=== PATIENT | female | born 1970 | race African-American/Black ===

== ENCOUNTER 2016-08-24 12:05 | Emergency (ER) | payer BC ==
[2016-08-24] MEDS ORDERED: Ibuprofen 200 MG TAB ONE (12:30)
[2016-08-24] MEDS ORDERED: Ondansetron ODT 4 MG TAB ONE (12:30)
[2016-08-24] MEDS ORDERED: Benzonatate 100 MG CAP ONE (12:33)
[2016-08-24 13:12] LABS: Bilirubin Negative (Negative); Blood, Urine Trace (Negative); Glucose, Urine (Dipstick) Negative (Negative); Leukocyte Negative (Negative); Nitrite Negative (Negative); Protein, Urine (Dipstick) Negative (Neg-Trace); Specific Gravity, Urine 1.015 (1.005-1.030); Urobilinogen 0.2 mg/dL (0.2-1.0)
[2016-08-24 13:16] LABS: #Basophils 0.1 thou/uL (0.0-0.2); #Lymphocytes 1.5 thou/uL (1.20-3.40); #Monocytes 0.7 thou/uL (0.11-0.59); #Neutrophils 4.2 thou/uL (1.40-6.50); %Basophils 1.8 % (0.0-1.0); %Lymphocytes 23.2 % (21.0-51.0); %Monocytes 10.4 % (0.0-10.0); %Neutrophils 64.6 % (42.0-75.0); Hemoglobin 14.8 g/dL (12.0-16.0); Mean Corpuscular HGB CONC 32.6 g/dL (32.0-36.0); Mean Corpuscular Hemoglobin 29.3 pg (27.0-31.0); Mean Corpuscular Volume 89.8 fl (81.0-99.0); Mean Platelet Volume 8.6 fL (7.4-10.4); Platelet Count 191 thou/uL (130-400); RBC Distribution Width 12.7 % (11.5-14.5); Red Blood Cell (RBC) Count 5.05 mill/uL (4.20-5.40); White Blood Cell (WBC) Count 6.5 thou/uL (4.8-10.8)
--- NOTE | 2016-08-24 13:19 | RAD ---
EXAM: ONE VIEW CHEST: HISTORY: Cough. COMPARISON: 04/14/16. FINDINGS: Normal cardiac silhouette. Pulmonary vessels and hilum are normal. No mass. No consolidation. No pneumothorax or osseous abnormalities. IMPRESSION: No acute cardiopulmonary process. POS: [facility]
[2016-08-24 13:21] LABS: Bacteria/HPF Rare-Few HPF (None Seen); Clarity SL HAZY (Clear); RBC/HPF 0-3 HPF (0-3); Squamous Epithelial 0-3 HPF (0-3)
[2016-08-24 13:26] LABS: ALT (SGPT) 13 U/L (0-55); AST (SGOT) 17 U/L (5-34); Albumin 4.3 g/dL (3.5-5.0); Alkaline Phosphatase 87 U/L (40-150); Anion Gap 16 mmol/L (10-20); BUN (Urea Nitrogen) 7 mg/dL (7.0-18.7); Bilirubin, Total 0.4 mg/dL (0.2-1.2); Calc. Creatinine Clearance 0 mL/min (70-130); Calcium 9.2 mg/dL (7.8-10.44); Carbon Dioxide 22 mmol/L (22-29); Chloride 103 mmol/L (98-107); Estimated GFR-MDRD 62; Globulin 3.6 g/dL (2.4-3.5); Glucose 94 mg/dL (70-105); Protein, Total 7.9 g/dL (6.0-8.3); Sodium 137 mmol/L (136-145)
== END 2016-08-24 13:48 | disposition home or self-care (01) ==
LOC: NAV ERS 12:05
DX: B34.9 Viral infection, unspecified (principal); E03.9 Hypothyroidism, unspecified; I10 Essential (primary) hypertension; Z79.899 Other long term (current) drug therapy
CPT/HCPCS: 71010; 80053; 81003; 81015; 83605; 85025; 87081; 87430; Q0162

== ENCOUNTER 2017-05-18 08:53 | Emergency (ER) | payer BC ==
[2017-05-18] MEDS ORDERED: Ibuprofen 200 MG TAB ONE (09:00)
--- NOTE | 2017-05-18 12:01 | RAD ---
PA AND LATERAL CHEST: HISTORY: Chest pain. Flu symptoms. FINDINGS: The lungs are clear. No infiltrate identified. The heart and mediastinum are unremarkable. IMPRESSION: No evidence of focal infiltrate. POS: [facility]
== END 2017-05-18 10:02 | disposition home or self-care (01) ==
LOC: NAV ERS 08:53
DX: J11.1 Influenza due to unidentified influenza virus with other respiratory manifestations (principal); E03.9 Hypothyroidism, unspecified; I10 Essential (primary) hypertension; M10.9 Gout, unspecified; F17.210 Nicotine dependence, cigarettes, uncomplicated; Z79.899 Other long term (current) drug therapy
CPT/HCPCS: 71046; 93005

== ENCOUNTER 2017-08-16 12:13 | Emergency (ER) | payer BC ==
[2017-08-16] MEDS ORDERED: HYDROcodone/Acetaminophen 5/325 mg Tablet ONE (12:55)
--- NOTE | 2017-08-16 14:50 | RAD ---
RADIOGRAPH RIGHT FOOT 3 VIEWS: Date: 08/16/17 HISTORY: 47-year-old female with nontraumatic right foot pain. FINDINGS: There is a bunionectomy defect at the medial aspect of the first metatarsal head and neck, and there is chronic osseous thickening of the lateral side. There is no hallux valgus. Mild degenerative siddiqui es at the first MTP joint space. Diffuse soft tissue edema of the foot. No periosteal elevation, oste olytic lesion, osteoblastic lesion, or permeative lesion. Bone mineralization is normal. IMPRESSION: 1. Diffuse soft tissue edema. 2. No destructive osseous lesion. 3. Status post bunionectomy and osteoplasty of 1st metatarsal. POS: [facility]
== END 2017-08-16 14:05 | disposition home or self-care (01) ==
LOC: NAV ERS 12:13
DX: M10.9 Gout, unspecified (principal); E03.9 Hypothyroidism, unspecified; I10 Essential (primary) hypertension; F17.210 Nicotine dependence, cigarettes, uncomplicated; Z79.899 Other long term (current) drug therapy
CPT/HCPCS: 84550

== ENCOUNTER 2018-06-30 23:13 | Emergency (ER) | payer BC ==
[2018-06-30] MEDS ORDERED: Ketorolac Tromethamine 30 MG/ML VIAL ONE (23:36)
[2018-06-30 23:38] LABS: #Basophils 0.1 thou/uL (0.0-0.2); #Eosinphils 0.5 thou/uL (0.0-0.7); #Lymphocytes 4.3 thou/uL (1.20-3.40); #Monocytes 0.8 thou/uL (0.11-0.59); #Neutrophils 5.3 thou/uL (1.40-6.50); %Basophils 0.8 % (0.0-1.0); %Eosinophils 4.3 % (0.0-10.0); %Lymphocytes 39.2 % (21.0-51.0); %Monocytes 7.1 % (0.0-10.0); %Neutrophils 48.6 % (42.0-75.0); Hemoglobin 14.4 g/dL (12.0-16.0); Mean Corpuscular HGB CONC 32.7 g/dL (32.0-36.0); Mean Corpuscular Hemoglobin 28.6 pg (27.0-31.0); Mean Corpuscular Volume 87.4 fL (78.0-98.0); Mean Platelet Volume 8.8 fL (7.4-10.4); Platelet Count 248 thou/uL (130-400); RBC Distribution Width 12.8 % (11.5-14.5); Red Blood Cell (RBC) Count 5.06 mill/uL (4.20-5.40); White Blood Cell (WBC) Count 10.9 thou/uL (4.8-10.8)
--- NOTE | 2018-06-30 23:49 | RAD ---
CHEST ONE VIEW 06/30/18 INDICATION: History of chest pain. COMPARISON: Prior exam dated 08/24/16. FINDINGS: The lungs are clear. Heart size is normal. There are mild vascular calcifications involving the aorti c arch. No acute osseous abnormality is evident. IMPRESSION: No acute cardiopulmonary abnormality. POS: [facility]
[2018-06-30 23:59] LABS: Anion Gap 13 mmol/L (10-20); BUN (Urea Nitrogen) 14 mg/dL (7.0-18.7); CK (CPK) 398 U/L (29-168); Calc. Creatinine Clearance 0 mL/min (70-130); Calcium 10.3 mg/dL (7.8-10.44); Carbon Dioxide 25 mmol/L (22-29); Chloride 103 mmol/L (98-107); Estimated GFR-MDRD Greater than 90; Glucose 93 mg/dL (70-105); Lipase 16 U/L (8-78); Potassium 3.7 mmol/L (3.5-5.1); Sodium 137 mmol/L (136-145)
== END 2018-07-01 00:12 | disposition home or self-care (01) ==
LOC: NAV ERS 23:13
DX: R09.1 Pleurisy (principal); J34.0 Abscess, furuncle and carbuncle of nose; E03.9 Hypothyroidism, unspecified; I10 Essential (primary) hypertension; M10.9 Gout, unspecified; F17.210 Nicotine dependence, cigarettes, uncomplicated; Z79.899 Other long term (current) drug therapy; Z79.82 Long term (current) use of aspirin; Z79.891 Long term (current) use of opiate analgesic; Z79.51 Long term (current) use of inhaled steroids
CPT/HCPCS: 36415; 71045; 80048; 82550; 83690; 84484; 85025; 93005; 96374; J1885

== ENCOUNTER 2018-08-16 12:51 | Emergency (ER) | payer BC | END 2018-08-16 13:58 | disposition home or self-care (01) | LOC: NAV ERS 12:51 | DX: J02.9 Acute pharyngitis, unspecified (principal); I10 Essential (primary) hypertension; M10.9 Gout, unspecified; F17.210 Nicotine dependence, cigarettes, uncomplicated; E03.9 Hypothyroidism, unspecified; Z79.899 Other long term (current) drug therapy | CPT/HCPCS: 87081; 87430; 99283 ==

== ENCOUNTER 2018-09-24 09:46 | Emergency (ER) | payer BC ==
[2018-09-24] MEDS ORDERED: Pantoprazole 40 MG VIAL ONE (10:28)
[2018-09-24] MEDS ORDERED: Nitroglycerin 0.4 MG TAB (25 Tab Bottle) ONE (10:29)
[2018-09-24] MEDS ORDERED: Aspirin Chewable 81 MG TAB ONE (10:30)
[2018-09-24 10:38] LABS: #Basophils 0.1 thou/uL (0.0-0.2); #Lymphocytes 3.9 thou/uL (1.20-3.40); #Monocytes 1.1 thou/uL (0.11-0.59); #Neutrophils 14.5 thou/uL (1.40-6.50); %Basophils 0.3 % (0.0-1.0); %Eosinophils 0.2 % (0.0-10.0); %Lymphocytes 19.7 % (21.0-51.0); %Monocytes 5.7 % (0.0-10.0); %Neutrophils 74.1 % (42.0-75.0); Hemoglobin 14.6 g/dL (12.0-16.0); Mean Corpuscular HGB CONC 31.7 g/dL (32.0-36.0); Mean Corpuscular Volume 88.2 fL (78.0-98.0); Mean Platelet Volume 8.7 fL (7.4-10.4); Platelet Count 270 thou/uL (130-400); RBC Distribution Width 13.6 % (11.5-14.5); Red Blood Cell (RBC) Count 5.21 mill/uL (4.20-5.40); White Blood Cell (WBC) Count 19.5 thou/uL (4.8-10.8)
--- NOTE | 2018-09-24 10:41 | RAD ---
PA AND LATERAL VIEWS OF CHEST: HISTORY: Midsternal chest pain. FINDINGS: Comparison is made with the exam of 06/30/2018. The heart size is normal. The lungs are expanded without focal areas of consolidation, pneumothorace s, or pleural effusions. There are mild degenerative changes in the spine. IMPRESSION: No radiographic evidence of acute cardiopulmonary process. POS: [facility]
[2018-09-24 10:48] LABS: ALT (SGPT) 27 U/L (8-55); AST (SGOT) 21 U/L (5-34); Albumin 4.1 g/dL (3.5-5.0); Alkaline Phosphatase 150 U/L (40-150); Anion Gap 16 mmol/L (10-20); BUN (Urea Nitrogen) 12 mg/dL (7.0-18.7); Bilirubin, Total 0.2 mg/dL (0.2-1.2); Calc. Creatinine Clearance 0 mL/min (70-130); Carbon Dioxide 24 mmol/L (22-29); Chloride 103 mmol/L (98-107); Estimated GFR-MDRD 79; Globulin 3.2 g/dL (2.4-3.5); Glucose 161 mg/dL (70-105); Potassium 3.6 mmol/L (3.5-5.1); Protein, Total 7.3 g/dL (6.0-8.3); Sodium 139 mmol/L (136-145)
[2018-09-24] MEDS ORDERED: Fentanyl 100 MCG/2 ML VIAL ONE (11:19)
[2018-09-24 11:29] LABS: Bilirubin Negative (Negative); Blood, Urine Negative (Negative); Clarity Clear (Clear); Glucose, Urine (Dipstick) Negative (Negative); Leukocyte Negative (Negative); Nitrite Negative (Negative); Protein, Urine (Dipstick) Negative (Neg-Trace); Specific Gravity, Urine 1.015 (1.005-1.030); Urobilinogen 0.2 mg/dL (0.2-1.0); pH, Urine 5.5 (5.0-9.0)
[2018-09-24] MEDS ORDERED: Magnesium 5 GM/10 ML VIAL ONE (13:01)
[2018-09-24] MEDS ORDERED: Mag-Al Plus 1200 MG/1200 MG/120 MG/30 ML UDCUP ONE (13:01)
--- NOTE | 2018-09-24 13:18 | ULT ---
RIGHT UPPER QUADRANT ULTRASOUND: Date: 09/24/18 PROVIDED CLINICAL HISTORY: Chest pain. FINDINGS: The IVC and pancreas appear normal as visualized. Liver demonstrates no mass or intrahepatic biliary ductal dilatation. Common duct is not dilated. Gallbladder demonstrates no stones, wall thickening, o r pericholecystic fluid. Right kidney demonstrates no hydronephrosis or mass. IMPRESSION: No evidence for an acute abnormality. POS: [facility]
== END 2018-09-24 14:05 | disposition home or self-care (01) ==
LOC: NAV ERS 09:46
DX: K29.00 Acute gastritis without bleeding (principal); R07.81 Pleurodynia; E03.9 Hypothyroidism, unspecified; I10 Essential (primary) hypertension; M10.9 Gout, unspecified; F17.210 Nicotine dependence, cigarettes, uncomplicated; Z79.899 Other long term (current) drug therapy
CPT/HCPCS: 36415; 71046; 76705; 80053; 81003; 84484; 85025; 93005; 96374; 96375; C9113; J3010; J3475

== ENCOUNTER 2019-01-17 15:32 | Emergency (ER) | payer BC ==
[2019-01-17] MEDS ORDERED: methylPREDNISolone Sod Succ/PF 125 MG/2 ML VIAL ONE (15:54)
[2019-01-17] MEDS ORDERED: Ketorolac Tromethamine 60 MG/2 ML VIAL ONE (15:54)
== END 2019-01-17 16:18 | disposition home or self-care (01) ==
LOC: NAV ERS 15:32
DX: M54.41 Lumbago with sciatica, right side (principal); E03.9 Hypothyroidism, unspecified; I10 Essential (primary) hypertension; M10.9 Gout, unspecified; M19.90 Unspecified osteoarthritis, unspecified site; F17.210 Nicotine dependence, cigarettes, uncomplicated; Z79.899 Other long term (current) drug therapy; Z79.82 Long term (current) use of aspirin
CPT/HCPCS: 96372; 99283; J1885; J2930

== ENCOUNTER 2019-05-28 13:42 | Outpatient (CLI) | payer BC ==
--- NOTE | 2019-05-28 15:43 | RAD ---
THREE VIEWS LUMBAR SPINE: 05/28/19 INDICATION: History of diagnosis code 54.16, back pain. COMPARISON: Comparison from [facility] from 02/14/15 was reviewed. FINDINGS: The upright lateral projection of the lumbar spine demonstrates moderate disc degenerative disease at L3-4 through L5-S1. No abnormal translational motion is evident. IMPRESSION: 1. No abnormal translational motion. 2. Moderate disc degenerative disease of the lower lumbar spine. POS: [facility]
== END 2019-05-28 13:43 | disposition home or self-care (01) ==
LOC: NAV RAD 13:42
PROVIDERS: ATTEND Neurological Surgery
DX: M51.16 Intervertebral disc disorders with radiculopathy, lumbar region (principal)
CPT/HCPCS: 72100

== ENCOUNTER 2019-09-25 09:59 | Emergency (ER) | payer BC | END 2019-09-25 11:20 | disposition home or self-care (01) | LOC: NAV ERS 09:59 | DX: L76.34 Postprocedural seroma of skin and subcutaneous tissue following other procedure (principal); E03.9 Hypothyroidism, unspecified; I10 Essential (primary) hypertension; E78.5 Hyperlipidemia, unspecified; F32.9 Major depressive disorder, single episode, unspecified; F17.210 Nicotine dependence, cigarettes, uncomplicated; Z79.899 Other long term (current) drug therapy; Z79.1 Long term (current) use of non-steroidal anti-inflammatories (NSAID); Z79.82 Long term (current) use of aspirin; Z79.891 Long term (current) use of opiate analgesic | CPT/HCPCS: 99282 ==

== ENCOUNTER 2019-10-19 12:41 | Emergency (ER) | payer BC ==
[2019-10-19] MEDS ORDERED: Ondansetron ODT 4 MG TAB ONE (13:35)
[2019-10-19] MEDS ORDERED: Acetaminophen/Codeine 30-300mg Tablet ONE (13:35)
[2019-10-19 13:59] LABS: #Basophils 0.2 thou/uL (0.0-0.2); #Eosinphils 0.4 thou/uL (0.0-0.7); #Lymphocytes 4.9 thou/uL (1.20-3.40); #Monocytes 1.1 thou/uL (0.11-0.59); #Neutrophils 5.3 thou/uL (1.40-6.50); %Basophils 1.3 % (0.0-1.0); %Eosinophils 3.5 % (0.0-10.0); %Lymphocytes 41.3 % (21.0-51.0); %Monocytes 9.2 % (0.0-10.0); %Neutrophils 44.7 % (42.0-75.0); Hemoglobin 13.9 g/dL (12.0-16.0); Mean Corpuscular HGB CONC 30.4 g/dL (32.0-36.0); Mean Corpuscular Hemoglobin 28.5 pg (27.0-31.0); Mean Corpuscular Volume 93.7 fL (78.0-98.0); Mean Platelet Volume 9.9 fL (7.4-10.4); Platelet Count 283 thou/uL (130-400); RBC Distribution Width 15.7 % (11.5-14.5); Red Blood Cell (RBC) Count 4.88 mill/uL (4.20-5.40); White Blood Cell (WBC) Count 11.8 thou/uL (4.8-10.8)
[2019-10-19 14:07] LABS: Anion Gap 14 mmol/L (10-20); BUN (Urea Nitrogen) 10 mg/dL (7.0-18.7); Calc. Creatinine Clearance 0 mL/min (70-130); Calcium 9.6 mg/dL (7.8-10.44); Carbon Dioxide 27 mmol/L (22-29); Chloride 99 mmol/L (98-107); Estimated GFR-MDRD 68; Glucose 104 mg/dL (70-105); Potassium 3.9 mmol/L (3.5-5.1); Sodium 136 mmol/L (136-145)
--- NOTE | 2019-10-19 17:53 | CT ---
CT OF THE LUMBAR SPINE WITHOUT CONTRAST: 10/19/19 INDICATION: 49-year-old female with history of lumbar fusion five weeks ago with low back pain. COMPARISON: Lumbar spinal radiograph dated 05/28/19. FINDINGS: There is postprocedural change of a laminectomy at L5. There is partial ostectomy of the spinous proc ess at L4. There is vacuum disc phenomenon at L4-5. There is posterolateral spinal instrumentation at L5-S1 consistent with a posterior lumbar interbody fusion. There is morselized bone graft seen along the posterolateral aspect of the spinal fusion column. The pedicular screws and interconnecting rods are intact. There is no overt evidence to suggest loosening. There is some inflammatory reticulation of the subcutaneous fat overlying the operative site consistent with the patient's fairly recent po stoperative state. There are vascular calcifications involving the visualized abdominopelvic vasculat ure. There is mild degenerative change of both SI joints. At the L5-S1 level, there is a residual osteophyte complex and facet hypertrophy inducing mild to mod erate neural foraminal narrowing, left greater than right. At L4-5, there is a broad based disc osteophyte complex and facet hypertrophy inducing mild to modera te bilateral neural foraminal narrowing. At L3-4, there is a broad based bulge with facet hypertrophy inducing mild bilateral neural foraminal narrowing. At L2-3, there is no appreciable osseous central canal or neural foraminal narrowing. At L1-2, there is no appreciable central canal or neural foraminal narrowing. IMPRESSION: 1. Postoperative lumbar spine. 2. Moderate spondylosis of the lumbar spine with some residual neural foraminal narrowing as det anita above. POS: [facility]
== END 2019-10-19 15:33 | disposition short-term general hospital (02) ==
LOC: NAV ERS 12:41
DX: M51.36 Other intervertebral disc degeneration, lumbar region (principal); M54.5 Low back pain; G89.29 Other chronic pain; R79.1 Abnormal coagulation profile; M79.89 Other specified soft tissue disorders; F32.9 Major depressive disorder, single episode, unspecified; E78.5 Hyperlipidemia, unspecified; I10 Essential (primary) hypertension; F17.210 Nicotine dependence, cigarettes, uncomplicated; E03.9 Hypothyroidism, unspecified; Z79.1 Long term (current) use of non-steroidal anti-inflammatories (NSAID); Z79.899 Other long term (current) drug therapy
CPT/HCPCS: 72131; 80048; 85025; 85379; Q0162

== ENCOUNTER 2020-04-12 09:59 | Emergency (ER) | payer SELFPAY ==
[2020-04-12] MEDS ORDERED: Ketorolac Tromethamine 30 MG/ML VIAL ONE (10:46)
--- NOTE | 2020-04-12 11:01 | RAD ---
PORTABLE CHEST: Date: 04/12/2020 HISTORY: Cough. COMPARISON: 06/30/2018. FINDINGS: Lung garcía appear clear. No infiltrate or vascular congestion. Heart size normal. IMPRESSION: No acute lung abnormality identified. POS: [facility]
[2020-04-12 22:26] LABS: SARS-CoV-2 MS2 Positive; SARS-CoV-2 N Gene Negative; SARS-CoV-2 S Gene Negative; SARS-CoV-2 by NAA Not Detected (NotDetected); SARS-CoV-2 orf1ab Negative
== END 2020-04-12 12:00 | disposition home or self-care (01) ==
LOC: NAV ERS 09:59
DX: B34.9 Viral infection, unspecified (principal); Z20.828 Contact with and (suspected) exposure to other viral communicable diseases; J44.9 Chronic obstructive pulmonary disease, unspecified; E03.9 Hypothyroidism, unspecified; E78.5 Hyperlipidemia, unspecified; I10 Essential (primary) hypertension; F17.210 Nicotine dependence, cigarettes, uncomplicated; Z79.899 Other long term (current) drug therapy; Z79.1 Long term (current) use of non-steroidal anti-inflammatories (NSAID)
CPT/HCPCS: 71045; 87635; 87804; 96374; J1885; U0003

== ENCOUNTER 2020-06-09 11:28 | Emergency (ER) | payer OTHER ==
[2020-06-09] MEDS ORDERED: HYDROcodone/Acetaminophen 5/325 mg Tablet ONE (11:55)
[2020-06-09] MEDS ORDERED: Cyclobenzaprine 10 MG TAB ONE (11:55)
[2020-06-09] MEDS ORDERED: Ketorolac Tromethamine 60 MG/2 ML VIAL ONE (11:55)
== END 2020-06-09 12:42 | disposition home or self-care (01) ==
LOC: NAV ERS 11:28
DX: G89.29 Other chronic pain (principal); M54.16 Radiculopathy, lumbar region; J44.9 Chronic obstructive pulmonary disease, unspecified; E03.9 Hypothyroidism, unspecified; E78.5 Hyperlipidemia, unspecified; I10 Essential (primary) hypertension; F17.210 Nicotine dependence, cigarettes, uncomplicated; Z79.84 Long term (current) use of oral hypoglycemic drugs; Z79.899 Other long term (current) drug therapy
CPT/HCPCS: 96372; 99283; J1885

== ENCOUNTER 2020-06-25 13:04 | Emergency (ER) | payer BC, OTHER ==
--- NOTE | 2020-06-25 13:47 | RAD ---
EXAM: CHEST PA AND LATERAL: History: Pneumonia Comparison: 04-12-2020 FINDINGS: Heart size is within normal limits. The lungs are clear. No confluent pneumonia, overt edema, or pleu ral effusion. IMPRESSION: No significant acute intrathoracic disease. POS: [facility]
[2020-06-25] MEDS ORDERED: Acetaminophen 325 MG TAB ONE (13:59)
[2020-06-26 17:51] LABS: SARS-CoV-2 PCR by NAA Not Detected (NotDetected)
== END 2020-06-25 14:30 | disposition home or self-care (01) ==
LOC: NAV ERS 13:04
DX: J44.0 Chronic obstructive pulmonary disease with (acute) lower respiratory infection (principal); J20.9 Acute bronchitis, unspecified; Z20.822 Contact with and (suspected) exposure to COVID-19; M79.7 Fibromyalgia; E03.9 Hypothyroidism, unspecified; E78.5 Hyperlipidemia, unspecified; F17.210 Nicotine dependence, cigarettes, uncomplicated; Z79.51 Long term (current) use of inhaled steroids; Z79.899 Other long term (current) drug therapy
CPT/HCPCS: 71046; 87635; 93005; U0003; U0005

== ENCOUNTER 2020-09-07 11:07 | Emergency (ER) | payer BC ==
[~2020-09-07 11:07] MED LIST: Iopamidol 370 76% 100 ML VIAL ONE
[2020-09-07] MEDS ORDERED: Ondansetron PF 4 MG/2 ML Vial ONE (11:16)
[2020-09-07 12:45] LABS: Bilirubin Negative (Negative); Blood, Urine Negative (Negative); Clarity Clear (Clear); Glucose, Urine (Dipstick) Negative (Negative); Ketone, Urine Negative (Negative); Leukocyte Negative (Negative); Nitrite Negative (Negative); Protein, Urine (Dipstick) Negative (Neg-Trace); Urobilinogen 0.2 mg/dL (Less than 2); pH, Urine 5.5 (5.0-9.0)
[2020-09-07 13:03] LABS: ALT (SGPT) 30 U/L (8-55); AST (SGOT) 12 U/L (5-34); Albumin 3.5 g/dL (3.5-5.0); Alkaline Phosphatase 106 U/L (40-110); Anion Gap 14 mmol/L (10-20); BUN (Urea Nitrogen) 15 mg/dL (9.8-20.1); Bilirubin, Total 0.6 mg/dL (0.2-1.2); Calc. Creatinine Clearance 0 mL/min (70-130); Calcium 8.1 mg/dL (7.8-10.44); Carbon Dioxide 28 mmol/L (22-29); Chloride 100 mmol/L (98-107); Globulin 3.1 g/dL (2.4-3.5); Glucose 100 mg/dL (70-105); Lipase 20 U/L (8-78); Potassium 3.9 mmol/L (3.5-5.1); Protein, Total 6.6 g/dL (6.0-8.3); Sodium 138 mmol/L (136-145)
[2020-09-07 13:06] LABS: Hemoglobin 14.4 g/dL (12.0-16.0); Mean Corpuscular HGB CONC 28.3 g/dL (32.0-36.0); Mean Corpuscular Hemoglobin 28.7 pg (27.0-31.0); Mean Platelet Volume 8.8 fL (7.4-10.4); Platelet Count 257 thou/uL (130-400); RBC Distribution Width 15.7 % (11.5-14.5); White Blood Cell (WBC) Count 9.2 thou/uL (4.8-10.8)
[2020-09-07] MEDS ORDERED: Morphine 4 MG/ML VIAL ONE (13:21)
[2020-09-07 13:22] LABS: Lymphocytes 37 % (21-51); MDiff Complete? YES; Monocytes 1 % (0-10); Neutrophil 62 % (42-75); Platelet Morphology Comment Appears Adequate; RBC Morphology Normal
== END 2020-09-07 15:35 | disposition home or self-care (01) ==
LOC: NAV ERS 11:07
DX: R11.2 Nausea with vomiting, unspecified (principal); R10.32 Left lower quadrant pain; R10.31 Right lower quadrant pain; R19.7 Diarrhea, unspecified; J44.9 Chronic obstructive pulmonary disease, unspecified; E03.9 Hypothyroidism, unspecified; E78.5 Hyperlipidemia, unspecified; I10 Essential (primary) hypertension; F17.210 Nicotine dependence, cigarettes, uncomplicated; Z79.84 Long term (current) use of oral hypoglycemic drugs; Z79.51 Long term (current) use of inhaled steroids; Z79.899 Other long term (current) drug therapy
CPT/HCPCS: 36415; 74177; 80053; 81003; 83605; 83690; 85025; 93005; 94760; 96374; 96375; J2270; J2405; Q9967

== ENCOUNTER 2020-12-22 16:13 | Emergency (ER) | payer BC ==
[2020-12-22] MEDS ORDERED: Fluorescein Opthalmic Strip ONE (17:15)
[2020-12-22] MEDS ORDERED: Tetracaine HCl 0.5% Ophth Soln 2 ML Bottle ONE (17:15)
[2020-12-22 17:52] LABS: #Basophils 0.2 thou/uL (0.0-0.2); #Eosinphils 0.1 thou/uL (0.0-0.7); #Lymphocytes 5.9 thou/uL (1.20-3.40); #Monocytes 1.2 thou/uL (0.11-0.59); #Neutrophils 8.6 thou/uL (1.40-6.50); %Basophils 0.9 % (0.0-1.0); %Eosinophils 0.4 % (0.0-10.0); %Lymphocytes 37.2 % (21.0-51.0); %Monocytes 7.3 % (0.0-10.0); %Neutrophils 54.2 % (42.0-75.0); Mean Corpuscular HGB CONC 30.1 g/dL (32.0-36.0); Mean Corpuscular Hemoglobin 30.2 pg (27.0-31.0); Mean Platelet Volume 8.1 fL (7.4-10.4); Platelet Count 266 thou/uL (130-400); RBC Distribution Width 15.7 % (11.5-14.5); Red Blood Cell (RBC) Count 4.63 mill/uL (4.20-5.40); White Blood Cell (WBC) Count 15.9 thou/uL (4.8-10.8)
[2020-12-22 17:57] LABS: ALT (SGPT) 40 U/L (8-55); AST (SGOT) 21 U/L (5-34); Albumin 3.8 g/dL (3.5-5.0); Alkaline Phosphatase 122 U/L (40-110); Anion Gap 11 mmol/L (10-20); BUN (Urea Nitrogen) 13 mg/dL (9.8-20.1); Bilirubin, Total 0.3 mg/dL (0.2-1.2); Calc. Creatinine Clearance 0 mL/min (70-130); Calcium 9.1 mg/dL (7.8-10.44); Carbon Dioxide 30 mmol/L (22-29); Chloride 104 mmol/L (98-107); Globulin 3.1 g/dL (2.4-3.5); Glucose 92 mg/dL (70-105); Potassium 3.8 mmol/L (3.5-5.1); Protein, Total 6.9 g/dL (6.0-8.3); Sodium 141 mmol/L (136-145)
== END 2020-12-22 18:38 | disposition home or self-care (01) ==
LOC: NAV ERS 16:13
DX: J01.00 Acute maxillary sinusitis, unspecified (principal); H05.20 Unspecified exophthalmos; J44.9 Chronic obstructive pulmonary disease, unspecified; E03.9 Hypothyroidism, unspecified; E78.5 Hyperlipidemia, unspecified; I10 Essential (primary) hypertension; F17.210 Nicotine dependence, cigarettes, uncomplicated; Z79.84 Long term (current) use of oral hypoglycemic drugs; Z79.899 Other long term (current) drug therapy
CPT/HCPCS: 70480; 80053; 84443; 85025

== ENCOUNTER 2021-02-18 15:47 | Emergency (ER) | payer BC ==
[2021-02-18] MEDS ORDERED: Ketorolac Tromethamine 60 MG/2 ML VIAL ONE (17:21)
== END 2021-02-18 17:30 | disposition home or self-care (01) ==
LOC: NAV ERS 15:47
DX: G89.29 Other chronic pain (principal); M54.50 Low back pain, unspecified; E11.9 Type 2 diabetes mellitus without complications; J44.9 Chronic obstructive pulmonary disease, unspecified; E03.9 Hypothyroidism, unspecified; E78.5 Hyperlipidemia, unspecified; I10 Essential (primary) hypertension; F17.210 Nicotine dependence, cigarettes, uncomplicated; Z79.899 Other long term (current) drug therapy; Z79.84 Long term (current) use of oral hypoglycemic drugs
CPT/HCPCS: 99283; J1885

== ENCOUNTER 2021-05-15 12:53 | Emergency (ER) | payer BC ==
[2021-05-15 13:53] LABS: Hemoglobin 15.9 g/dL (12.0-16.0); Mean Corpuscular HGB CONC 31.4 g/dL (32.0-36.0); Mean Corpuscular Hemoglobin 31.4 pg (27.0-31.0); Mean Platelet Volume 8.2 fL (7.4-10.4); Platelet Count 260 thou/uL (130-400); RBC Distribution Width 15.1 % (11.5-14.5); Red Blood Cell (RBC) Count 5.06 mill/uL (4.20-5.40); White Blood Cell (WBC) Count 8.1 thou/uL (4.8-10.8)
[2021-05-15] MEDS ORDERED: Ketorolac Tromethamine 30 MG/ML VIAL ONE (13:57)
[2021-05-15 14:07] LABS: ALT (SGPT) 26 U/L (8-55); AST (SGOT) 17 U/L (5-34); Albumin 3.9 g/dL (3.5-5.0); Alkaline Phosphatase 140 U/L (40-110); Anion Gap 16 mmol/L (10-20); BUN (Urea Nitrogen) 8 mg/dL (9.8-20.1); Bilirubin, Total 0.5 mg/dL (0.2-1.2); Calc. Creatinine Clearance 0 mL/min (70-130); Calcium 9.3 mg/dL (7.8-10.44); Carbon Dioxide 28 mmol/L (22-29); Chloride 95 mmol/L (98-107); Globulin 3.8 g/dL (2.4-3.5); Glucose 99 mg/dL (70-105); Potassium 3.7 mmol/L (3.5-5.1); Protein, Total 7.7 g/dL (6.0-8.3); Sodium 135 mmol/L (136-145)
[2021-05-15 14:12] LABS: #Basophils 0.1 thou/uL (0.0-0.2); #Eosinphils 0.1 thou/uL (0.0-0.7); #Lymphocytes 1.7 thou/uL (1.20-3.40); #Monocytes 0.5 thou/uL (0.11-0.59); #Neutrophils 5.6 thou/uL (1.40-6.50); %Basophils 0.7 % (0.0-1.0); %Eosinophils 1.3 % (0.0-10.0); %Lymphocytes 21.5 % (21.0-51.0); %Monocytes 6.7 % (0.0-10.0); %Neutrophils 69.8 % (42.0-75.0)
== END 2021-05-15 14:57 | disposition home or self-care (01) ==
LOC: NAV ERS 12:53
DX: R07.9 Chest pain, unspecified (principal); I10 Essential (primary) hypertension; E11.9 Type 2 diabetes mellitus without complications; J44.9 Chronic obstructive pulmonary disease, unspecified; M19.90 Unspecified osteoarthritis, unspecified site; F17.210 Nicotine dependence, cigarettes, uncomplicated; Z79.84 Long term (current) use of oral hypoglycemic drugs
CPT/HCPCS: 71045; 80053; 83880; 84484; 85025; 93005; 94760; 96374; J1885

== ENCOUNTER 2021-05-19 18:54 | Emergency (ER) | payer BC ==
[2021-05-20 22:16] LABS: SARS-CoV-2 PCR by NAA DETECTED (NotDetected)
== END 2021-05-19 19:52 | disposition home or self-care (01) ==
LOC: NAV ERS 18:54
DX: U07.1 COVID-19 (principal); E11.9 Type 2 diabetes mellitus without complications; J44.9 Chronic obstructive pulmonary disease, unspecified; E03.9 Hypothyroidism, unspecified; E78.5 Hyperlipidemia, unspecified; I10 Essential (primary) hypertension; M19.90 Unspecified osteoarthritis, unspecified site; F17.210 Nicotine dependence, cigarettes, uncomplicated; Z79.84 Long term (current) use of oral hypoglycemic drugs; Z79.899 Other long term (current) drug therapy
CPT/HCPCS: 87804; 99283; U0003; U0005

== ENCOUNTER 2021-07-04 07:02 | Emergency (ER) | payer BC ==
[2021-07-04 07:49] LABS: #Eosinphils 0.1 thou/uL (0.0-0.7); #Monocytes 0.9 thou/uL (0.11-0.59); #Neutrophils 8.3 thou/uL (1.40-6.50); %Basophils 0.3 % (0.0-1.0); %Eosinophils 0.9 % (0.0-10.0); %Monocytes 7.5 % (0.0-10.0); %Neutrophils 67.3 % (42.0-75.0); Hemoglobin 14.7 g/dL (12.0-16.0); Mean Corpuscular HGB CONC 31.3 g/dL (32.0-36.0); Mean Corpuscular Hemoglobin 31.2 pg (27.0-31.0); Mean Corpuscular Volume 99.6 fL (78.0-98.0); Mean Platelet Volume 8.3 fL (7.4-10.4); Platelet Count 277 thou/uL (130-400); RBC Distribution Width 14.8 % (11.5-14.5); Red Blood Cell (RBC) Count 4.72 mill/uL (4.20-5.40); White Blood Cell (WBC) Count 12.4 thou/uL (4.8-10.8)
[2021-07-04 08:06] LABS: ALT (SGPT) 20 U/L (8-55); AST (SGOT) 18 U/L (5-34); Albumin 3.8 g/dL (3.5-5.0); Alkaline Phosphatase 110 U/L (40-110); Anion Gap 13 mmol/L (10-20); BUN (Urea Nitrogen) 11 mg/dL (9.8-20.1); Bilirubin, Total 0.4 mg/dL (0.2-1.2); Calc. Creatinine Clearance 0 mL/min (70-130); Calcium 9.4 mg/dL (7.8-10.44); Carbon Dioxide 29 mmol/L (22-29); Chloride 98 mmol/L (98-107); Globulin 3.6 g/dL (2.4-3.5); Glucose 141 mg/dL (70-105); Potassium 3.3 mmol/L (3.5-5.1); Protein, Total 7.4 g/dL (6.0-8.3); Sodium 137 mmol/L (136-145)
[2021-07-04] MEDS ORDERED: Ondansetron ODT 4 MG TAB ONE (08:48)
[2021-07-04] MEDS ORDERED: Sulfameth/Trimethoprim DS 800-160mg TAB ONE (08:48)
[2021-07-04] MEDS ORDERED: Amoxicillin/Potassium Clav 875 MG TAB ONE (08:48)
[2021-07-04] MEDS ORDERED: Potassium Chloride 20 MEQ TAB ONE (08:48)
== END 2021-07-04 09:00 | disposition home or self-care (01) ==
LOC: NAV ERS 07:02
DX: L03.211 Cellulitis of face (principal); E11.9 Type 2 diabetes mellitus without complications; J44.9 Chronic obstructive pulmonary disease, unspecified; E03.9 Hypothyroidism, unspecified; E78.5 Hyperlipidemia, unspecified; I10 Essential (primary) hypertension; F17.210 Nicotine dependence, cigarettes, uncomplicated; Z79.899 Other long term (current) drug therapy; Z79.84 Long term (current) use of oral hypoglycemic drugs
CPT/HCPCS: 80053; 83605; 85025; 99283; Q0162

== ENCOUNTER 2021-07-17 19:19 | Emergency (ER) | payer BC ==
[2021-07-17] MEDS ORDERED: Ketorolac Tromethamine 60 MG/2 ML VIAL ONE (20:29)
== END 2021-07-17 21:10 | disposition home or self-care (01) ==
LOC: NAV ERS 19:19
DX: I87.2 Venous insufficiency (chronic) (peripheral) (principal); M79.662 Pain in left lower leg; I10 Essential (primary) hypertension; E11.9 Type 2 diabetes mellitus without complications; J44.9 Chronic obstructive pulmonary disease, unspecified; E03.9 Hypothyroidism, unspecified; E78.5 Hyperlipidemia, unspecified; M19.90 Unspecified osteoarthritis, unspecified site; E05.00 Thyrotoxicosis with diffuse goiter without thyrotoxic crisis or storm; F17.210 Nicotine dependence, cigarettes, uncomplicated; M79.7 Fibromyalgia; Z79.84 Long term (current) use of oral hypoglycemic drugs; Z79.899 Other long term (current) drug therapy
CPT/HCPCS: 96372; J1885

== ENCOUNTER 2022-03-17 11:12 | Emergency (ER) | payer BC ==
[2022-03-17] MEDS ORDERED: HYDROcodone/Acetaminophen 5/325 mg Tablet ONE (11:56)
[2022-03-17 12:09] LABS: Bilirubin Negative (Negative); Blood, Urine Negative (Negative); Clarity Clear (Clear); Glucose, Urine (Dipstick) Negative (Negative); Ketone, Urine Negative (Negative); Leukocyte Negative (Negative); Nitrite Negative (Negative); Protein, Urine (Dipstick) Negative (Neg-Trace); Urobilinogen 0.2 mg/dL (Less than 2); pH, Urine 5.5 (5.0-9.0)
[2022-03-17] MEDS ORDERED: Gabapentin 300 MG CAP PO SCH (12:15)
[2022-03-17 12:29] LABS: #Basophils 0.2 thou/uL (0.0-0.2); #Eosinphils 0.6 thou/uL (0.0-0.7); #Lymphocytes 4.2 thou/uL (1.20-3.40); #Monocytes 0.7 thou/uL (0.11-0.59); #Neutrophils 6.3 thou/uL (1.40-6.50); %Basophils 1.3 % (0.0-1.0); %Eosinophils 5.4 % (0.0-10.0); %Monocytes 5.9 % (0.0-10.0); %Neutrophils 52.5 % (42.0-75.0); Hemoglobin 15.4 g/dL (12.0-16.0); Mean Corpuscular Hemoglobin 30.6 pg (27.0-31.0); Mean Corpuscular Volume 95.7 fl (78.0-98.0); Platelet Count 267 thou/uL (130-400); RBC Distribution Width 13.7 % (11.5-14.5); Red Blood Cell (RBC) Count 5.04 mill/uL (4.20-5.40)
[2022-03-17 12:30] LABS: ALT (SGPT) 18 U/L (8-55); AST (SGOT) 15 U/L (5-34); Albumin 4.1 g/dL (3.5-5.0); Alkaline Phosphatase 118 U/L (40-110); Anion Gap 13 mmol/L (10-20); BUN (Urea Nitrogen) 12 mg/dL (9.8-20.1); Bilirubin, Total 0.3 mg/dL (0.2-1.2); Calc. Creatinine Clearance 0 mL/min (70-130); Calcium 9.8 mg/dL (7.8-10.44); Carbon Dioxide 31 mmol/L (22-29); Chloride 101 mmol/L (98-107); Estimated GFR 73; Globulin 3.5 g/dL (2.4-3.5); Glucose 95 mg/dL (70-105); Potassium 3.8 mmol/L (3.5-5.1); Protein, Total 7.6 g/dL (6.0-8.3); Sodium 141 mmol/L (136-145)
== END 2022-03-17 13:44 | disposition home or self-care (01) ==
LOC: NAV ERS 11:12
DX: M79.605 Pain in left leg (principal); M79.2 Neuralgia and neuritis, unspecified; R60.0 Localized edema; F17.210 Nicotine dependence, cigarettes, uncomplicated; J44.9 Chronic obstructive pulmonary disease, unspecified; E11.9 Type 2 diabetes mellitus without complications; E78.5 Hyperlipidemia, unspecified; I10 Essential (primary) hypertension; Z79.84 Long term (current) use of oral hypoglycemic drugs; Z79.899 Other long term (current) drug therapy
CPT/HCPCS: 80053; 81003; 85025; 87086; 99284

== ENCOUNTER 2023-02-28 15:11 | Emergency (ER) | payer BC ==
[2023-02-28] MEDS ORDERED: Ipratropium/Albuterol 3 ML NEB ONE (15:39)
[2023-02-28] MEDS ORDERED: Aspirin Chewable 81 MG TAB ONE (15:41)
[2023-02-28 15:44] LABS: #Basophils 0.1 thou/uL (0.0-0.2); #Eosinphils 0.3 thou/uL (0.0-0.7); #Lymphocytes 5.2 thou/uL (1.20-3.40); #Monocytes 0.9 thou/uL (0.11-0.59); #Neutrophils 7.9 thou/uL (1.40-6.50); %Eosinophils 2.3 % (0.0-10.0); %Lymphocytes 35.7 % (21.0-51.0); %Monocytes 6.3 % (0.0-10.0); %Neutrophils 54.7 % (42.0-75.0); Hematocrit 48.9 % (36.0-47.0); Hemoglobin 15.6 g/dL (12.0-16.0); Mean Corpuscular HGB CONC 31.9 g/dL (32.0-36.0); Mean Corpuscular Volume 96.9 fl (78.0-98.0); Platelet Count 332 10x3/uL (130-400); RBC Distribution Width 14.3 % (11.5-14.5); Red Blood Cell (RBC) Count 5.05 mill/uL (4.20-5.40); White Blood Cell (WBC) Count 14.4 10x3/uL (4.8-10.8)
[2023-02-28 16:00] LABS: ALT (SGPT) 30 U/L (8-55); AST (SGOT) 17 U/L (5-34); Alkaline Phosphatase 152 U/L (40-110); Anion Gap 17 mmol/L (10-20); BUN (Urea Nitrogen) 12 mg/dL (9.8-20.1); Bilirubin, Total 0.3 mg/dL (0.2-1.2); Calc. Creatinine Clearance 0 mL/min (70-130); Calcium 10.1 mg/dL (7.8-10.44); Carbon Dioxide 27 mmol/L (22-29); Chloride 95 mmol/L (98-107); Estimated GFR 68; Globulin 3.8 g/dL (2.4-3.5); Glucose 111 mg/dL (70-105); Potassium 3.4 mmol/L (3.5-5.1); Protein, Total 7.8 g/dL (6.0-8.3); Sodium 136 mmol/L (136-145)
[2023-02-28 16:01] LABS: Troponin I Less than 0.010 ng/mL (< 0.028)
[2023-02-28] MEDS ORDERED: Morphine 4 MG/ML VIAL ONE (18:06)
[2023-02-28] MEDS ORDERED: Ondansetron PF 4 MG/2 ML Vial ONE (18:07)
[2023-02-28 19:46] LABS: Troponin I Less than 0.010 ng/mL (< 0.028)
== END 2023-02-28 19:40 | disposition short-term general hospital (02) ==
LOC: NAV ERS 15:11
DX: R07.2 Precordial pain (principal); I10 Essential (primary) hypertension; E11.9 Type 2 diabetes mellitus without complications; J44.9 Chronic obstructive pulmonary disease, unspecified; M79.7 Fibromyalgia; E03.9 Hypothyroidism, unspecified; M19.90 Unspecified osteoarthritis, unspecified site; F17.210 Nicotine dependence, cigarettes, uncomplicated; E05.00 Thyrotoxicosis with diffuse goiter without thyrotoxic crisis or storm; Z79.82 Long term (current) use of aspirin; Z79.899 Other long term (current) drug therapy
CPT/HCPCS: 71045; 80053; 83880; 84484; 85025; 85379; 93005; 96374; 96375; J2270; J2405; J7620

== ENCOUNTER 2023-12-16 17:31 | Emergency (ER) | payer BC | END 2023-12-16 18:20 | disposition home or self-care (01) | LOC: NAV ERS 17:31 | DX: M25.531 Pain in right wrist (principal); I10 Essential (primary) hypertension; F17.210 Nicotine dependence, cigarettes, uncomplicated; E03.9 Hypothyroidism, unspecified; Z79.899 Other long term (current) drug therapy | CPT/HCPCS: 99283 ==

== ENCOUNTER 2024-02-05 13:34 | Emergency (ER) | payer BC ==
[2024-02-05] MEDS ORDERED: Ketorolac Tromethamine 30 MG (1 mL) VIAL ONE (13:51)
[2024-02-05 14:01] LABS: #Eosinphils 0.3 thou/uL (0.0-0.7); #Monocytes 0.6 thou/uL (0.11-0.59); #Neutrophils 7.6 thou/uL (1.40-6.50); %Basophils 0.4 % (0.0-1.0); %Eosinophils 2.6 % (0.0-10.0); %Lymphocytes 26.2 % (21.0-51.0); %Neutrophils 65.8 % (42.0-75.0); Hematocrit 49.4 % (36.0-47.0); Hemoglobin 15.6 g/dL (12.0-16.0); Mean Corpuscular HGB CONC 31.5 g/dL (32.0-36.0); Mean Corpuscular Hemoglobin 29.5 pg (27.0-31.0); Mean Corpuscular Volume 93.7 fl (78.0-98.0); Mean Platelet Volume 8.4 fL (7.4-10.4); Platelet Count 280 10x3/uL (130-400); RBC Distribution Width 13.7 % (11.5-14.5); Red Blood Cell (RBC) Count 5.27 mill/uL (4.20-5.40); White Blood Cell (WBC) Count 11.5 10x3/uL (4.8-10.8)
[2024-02-05 14:19] LABS: ALT (SGPT) 36 U/L (8-55); AST (SGOT) 14 U/L (5-34); Albumin 3.2 g/dL (3.5-5.0); Alkaline Phosphatase 173 U/L (40-110); Anion Gap 15 mmol/L (10-20); BUN (Urea Nitrogen) 10 mg/dL (9.8-20.1); Bilirubin, Total 0.3 mg/dL (0.2-1.2); Calc. Creatinine Clearance 0 mL/min (70-130); Calcium 9.6 mg/dL (7.8-10.44); Carbon Dioxide 26 mmol/L (22-29); Chloride 99 mmol/L (98-107); Estimated GFR 76; Globulin 3.8 g/dL (2.4-3.5); Glucose 189 mg/dL (70-105); Potassium 3.2 mmol/L (3.5-5.1); Sodium 137 mmol/L (136-145)
[2024-02-05 14:55] LABS: Clarity Clear (Clear); pH, Urine 5.5 (5.0-9.0)
[2024-02-05 14:56] LABS: Bilirubin Negative (Negative); Blood, Urine Negative (Negative); Glucose, Urine (Dipstick) Negative (Negative); Ketone, Urine Negative (Negative); Leukocyte Negative (Negative); Nitrite Negative (Negative); Protein, Urine (Dipstick) Negative (Neg-Trace); Urobilinogen 0.2 mg/dL (Less than 2)
[2024-02-05 14:58] LABS: Bacteria/HPF 2+ HPF (None Seen); CAUTI Indications for Culture Pelvic or flank pain; RBC/HPF 0-3 HPF (0-3); Transitional Epithelial 0-3 HPF (None Seen); WBC/HPF 0-3 HPF (0-3)
[2024-02-05 15:00] LABS: Urine Culture Reflex No No
== END 2024-02-05 15:19 | disposition home or self-care (01) ==
LOC: NAV ERS 13:34
DX: R10.9 Unspecified abdominal pain (principal); J44.9 Chronic obstructive pulmonary disease, unspecified; I10 Essential (primary) hypertension; E05.00 Thyrotoxicosis with diffuse goiter without thyrotoxic crisis or storm; M19.90 Unspecified osteoarthritis, unspecified site; E03.9 Hypothyroidism, unspecified; E78.5 Hyperlipidemia, unspecified; F17.210 Nicotine dependence, cigarettes, uncomplicated; Z79.899 Other long term (current) drug therapy
CPT/HCPCS: 74176; 80053; 81001; 85025; 96374; J1885

== ENCOUNTER 2024-02-10 19:51 | Emergency (ER) | payer BC ==
[2024-02-10] MEDS ORDERED: Orphenadrine Citrate 60 MG/2 ML VIAL ONE (20:26)
== END 2024-02-10 20:40 | disposition home or self-care (01) ==
LOC: NAV ERS 19:51
DX: M54.50 Low back pain, unspecified (principal); I10 Essential (primary) hypertension; F17.210 Nicotine dependence, cigarettes, uncomplicated; J44.9 Chronic obstructive pulmonary disease, unspecified; E78.5 Hyperlipidemia, unspecified; E03.9 Hypothyroidism, unspecified; Z79.899 Other long term (current) drug therapy
CPT/HCPCS: 96372; 99283; J2360

== ENCOUNTER 2025-02-10 10:15 | Emergency (ER) | payer BC, OTHER ==
[2025-02-10] MEDS ORDERED: HYDROcodone/Acetaminophen 10/325 mg Tablet ONE (10:50)
[2025-02-10] MEDS ORDERED: Cyclobenzaprine 10 MG TAB ONE (10:50)
[2025-02-10 12:07] LABS: Glucose, Urine (Dipstick) Negative (Negative); Leukocyte Negative (Negative); Protein, Urine (Dipstick) Negative (Neg-Trace); Specific Gravity, Urine 1.020 (1.005-1.030)
[2025-02-10 12:31] LABS: Bacteria/HPF 2+ HPF (None Seen); CAUTI Indications for Culture Pelvic or flank pain; RBC/HPF 0-3 HPF (0-3); WBC/HPF 0-3 HPF (0-3)
[2025-02-10 12:33] LABS: Urine Culture Reflex No No
== END 2025-02-10 13:30 | disposition home or self-care (01) ==
LOC: NAV ERS 10:15
DX: M54.50 Low back pain, unspecified (principal); G89.29 Other chronic pain; J44.9 Chronic obstructive pulmonary disease, unspecified; E03.9 Hypothyroidism, unspecified; E78.5 Hyperlipidemia, unspecified; I10 Essential (primary) hypertension; F17.210 Nicotine dependence, cigarettes, uncomplicated; Z79.899 Other long term (current) drug therapy
CPT/HCPCS: 81001; 99283

== ENCOUNTER 2025-04-03 06:09 | Emergency (ER) | payer BC ==
[2025-04-03] MEDS ORDERED: Acetaminophen 325 MG TAB ONE (06:58)
== END 2025-04-03 07:05 | disposition home or self-care (01) ==
LOC: NAV ERS 06:09
DX: M79.671 Pain in right foot (principal); L84 Corns and callosities; M77.41 Metatarsalgia, right foot; J44.9 Chronic obstructive pulmonary disease, unspecified; E03.9 Hypothyroidism, unspecified; E78.5 Hyperlipidemia, unspecified; I10 Essential (primary) hypertension; F17.210 Nicotine dependence, cigarettes, uncomplicated; Z79.51 Long term (current) use of inhaled steroids; Z79.899 Other long term (current) drug therapy
CPT/HCPCS: 99283